=== PATIENT | male | born 1970 | race Caucasian/White ===

== ENCOUNTER 2021-10-16 12:29 | Inpatient (IN) | payer SELFPAY ==
[~2021-10-16] VITALS: Ht 185.4 cm; Wt 83.9 kg
[2021-10-16 13:12] LABS: Source, Urine Clean Catch
[2021-10-16] MEDS ORDERED: OMEP20ER PO (13:14)
[2021-10-16] MEDS ORDERED: PRED5 PO (13:14)
[2021-10-16] MEDS ORDERED: METO50 PO (13:15)
[2021-10-16] MEDS ORDERED: CATAPRES-TTS 21 EAC1 PO (13:15)
[2021-10-16 13:17] LABS: Appearance, Urine Turbid (Clear); Bilirubin, Urine Neg (Neg); Blood, Urine 5+ (Neg); Color, Urine Brown (P-Yellow); Glucose Qualitative, Urine Neg (Neg); Ketones, Urine 2+ (Neg); Leukocyte Esterase, Urine 3+ (Neg); Nitrite, Urine Neg (Neg); Protein, Urine 4+ (Neg); Urobilinogen, Urine NORM (Normal)
[2021-10-16] MEDS ORDERED: TACR1 PO ×2 (13:17→13:27)
[2021-10-16] MEDS ORDERED: MYCOPHENOLIC A360 M1 PO (13:19)
[2021-10-16] MEDS ORDERED: AMLO10 PO (13:19)
[2021-10-16] MEDS ORDERED: SIMV40 PO (13:19)
[2021-10-16] MEDS ORDERED: CATAPRES0.2 M1 PO (13:21)
[2021-10-16 13:29] LABS: Red Blood Cells, Urine TNTC /hpf (0-2)
[2021-10-16 13:30] LABS: Bacteria Many /hpf; Squamous Epithelial Cells Rare /hpf (Few); White Blood Cells, Urine TNTC /hpf (0-5)
[2021-10-16 13:31] LABS: BASOPHILS ABSOLUTE AUTO 0.05 K/mm3 (0.00-0.23); BASOPHILS PERCENT AUTO 0 % (0-2); EOSINOPHILS ABSOLUTE AUTO 0.01 K/mm3 (0.00-0.68); EOSINOPHILS PERCENT AUTO 0 % (0-6); Hematocrit 47.6 % (37.0-53.0); Hemoglobin 15.9 g/dL (13.5-17.5); IMMATURE GRAN PERCENT AUTO 1 % (0-1); LYMPHOCYTES ABSOLUTE AUTO 0.23 K/mm3 (0.84-5.20); LYMPHOCYTES PERCENT AUTO 1 % (21-46); MONOCYTES ABSOLUTE AUTO 1.31 K/mm3 (0.16-1.47); MONOCYTES PERCENT AUTO 7 % (4-13); Mean Corpuscular HGB 29.5 pg (26.0-34.0); Mean Corpuscular HGB Conc 33.4 g/dL (31.5-36.5); Mean Corpuscular Volume 88 fL (80-100); Mean Platelet Volume 10.9 fL (9.1-12.4); NEUTROPHILS ABSOLUTE AUTO 17.43 K/mm3 (1.96-9.15); NEUTROPHILS PERCENT AUTO 91 % (41-73); Platelet Count 150 K/mm3 (150-400); RDW Standard Deviation 42.4 fL (35.1-46.3); Red Blood Cell Count 5.39 M/mm3 (4.30-5.90); White Blood Cell Count 19.13 K/mm3 (4.00-11.30)
[2021-10-16 13:50] LABS: Albumin, Blood 3.2 g/dL (3.4-5.0); Albumin/Globulin Ratio 0.7 (0.8-1.8); Bilirubin, Total 1.3 mg/dL (0.1-1.0); Bun/Creatinine Ratio 15.7 (12.0-20.0); Calcium, Blood 10.3 mg/dL (8.5-10.1); Creatinine, Blood 1.72 mg/dL (0.60-1.20); Globulin, Blood 4.9 g/dL (2.2-4.0); Potassium, Blood 4.3 mmol/L (3.5-5.5); Total Protein, Blood 8.1 g/dL (6.4-8.2)
[2021-10-16 16:24] LABS: Influenza A, PCR NEGATIVE (NEGATIVE); Influenza B, PCR NEGATIVE (NEGATIVE); Resp Syncytial Virus, PCR NEGATIVE (NEGATIVE); SARS-Cov-2 (COVID-19) PCR, MMC NEGATIVE (NEGATIVE)
[2021-10-16] MEDS ORDERED: VITAMIN D31000 UNI1 PO (17:35)
--- NOTE | 2021-10-16 18:12 | NUR ---
ASSUMPTION OF CARE Pt arrived from the ER and was able to self transfer over to the bed. He is a/o x 4 and denies pain but does report that he is "freezing" and does have a low grade fever. He also reports nausea for which he was given zofran. 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 He has had this type of infection in the past s/p transplant so he reported that he was able to recognize that he was getting sick. PO fluids are at the bedside but he declined any food. IV fluids started as ordered. He is able to ambulate to the bathroom but does have his call light in reach if he needs anything.
--- NOTE | 2021-10-16 21:00 | NUR ---
2100 PATIENT FEBRILE AT 101.4, CALL PLACED TO HOSPITALIST, ORDERS FOR PRN TYLENOL RECIEVED. TUMS AND PRILOSEC PRN ORDERS RECIEVED PRN WELL A REQUEST OF THE PATIENT. WHILE GOING OVER 2100 MEDICATIONS, PATIENT REPORTED THAT SOME OF THE DOSES IN THE [facility] DID NOT CORRELATE WHAT HE TAKES AT HOME. UPDATED DOSING ORDERS RECIEVED FROM HOSPITALIST.
[2021-10-17 04:20] LABS: Albumin, Blood 2.4 g/dL (3.4-5.0); Albumin/Globulin Ratio 0.6 (0.8-1.8); Bilirubin, Total 1.4 mg/dL (0.1-1.0); Bun/Creatinine Ratio 17.2 (12.0-20.0); Calcium, Blood 9.1 mg/dL (8.5-10.1); Creatinine, Blood 1.69 mg/dL (0.60-1.20); Potassium, Blood 3.9 mmol/L (3.5-5.5); Total Protein, Blood 6.4 g/dL (6.4-8.2)
--- NOTE | 2021-10-17 05:47 | NUR ---
SHIFT SUMMARY PATIENT ALERT AND ORIENTED x4. VSS. PATIENT ON RA WITH O2 SAT ABOVE 95%. ABLE TO MAKE NEEDS KNOWN TO STAFF AND IS INDEPENDENT IN THE ROOM. PATIENT FEBRILE OVERNIGHT, PRN TYLENOL GIVEN PER [facility]. PATIENT USING URINAL AT BEDSIDE. ESTABLISHED ILEOSTOMY IN PLACE AND PATIENT MANAGES INDEPENDENTLY. NS INFUSING AT 100 mls/hr. HOME MEDICATION DOSING UPDATED, SEE PREVIOUS NOTE. OTHERWISE NO SIGNIFICANT CHANGES TO PATIENT THIS SHIFT. WILL REPORT TO DAY SHIFT RN.
--- NOTE | 2021-10-17 07:28 | NUR ---
ASSUMPTION OF CARE Pt is awake and a/o x 4 with no complaints this morning. His IV fluids continue to infuse as ordered. He has been able to ambulate to the toilet throughout the night per report. He has updated his via text. He is pleasant but flat and able to make his needs known.
[2021-10-17 07:50] LABS: BASOPHILS ABSOLUTE AUTO 0.03 K/mm3 (0.00-0.23); BASOPHILS PERCENT AUTO 0 % (0-2); EOSINOPHILS ABSOLUTE AUTO 0.01 K/mm3 (0.00-0.68); EOSINOPHILS PERCENT AUTO 0 % (0-6); Hematocrit 40.9 % (37.0-53.0); Hemoglobin 13.6 g/dL (13.5-17.5); IMMATURE GRAN ABSOLUTE AUTO 0.13 K/mm3 (0.00-0.10); IMMATURE GRAN PERCENT AUTO 1 % (0-1); LYMPHOCYTES ABSOLUTE AUTO 0.42 K/mm3 (0.84-5.20); LYMPHOCYTES PERCENT AUTO 3 % (21-46); MONOCYTES ABSOLUTE AUTO 1.44 K/mm3 (0.16-1.47); MONOCYTES PERCENT AUTO 10 % (4-13); Mean Corpuscular HGB 29.6 pg (26.0-34.0); Mean Corpuscular HGB Conc 33.3 g/dL (31.5-36.5); Mean Corpuscular Volume 89 fL (80-100); Mean Platelet Volume 10.3 fL (9.1-12.4); NEUTROPHILS ABSOLUTE AUTO 12.38 K/mm3 (1.96-9.15); NEUTROPHILS PERCENT AUTO 86 % (41-73); Platelet Count 145 K/mm3 (150-400); RDW Standard Deviation 42.7 fL (35.1-46.3); White Blood Cell Count 14.41 K/mm3 (4.00-11.30)
[2021-10-17 15:31] LABS: Bun/Creatinine Ratio 18.8 (12.0-20.0); Calcium, Blood 9.1 mg/dL (8.5-10.1); Creatinine, Blood 1.7 mg/dL (0.60-1.20); Potassium, Blood 4.3 mmol/L (3.5-5.5)
--- NOTE | 2021-10-17 16:42 | NUR ---
SHIFT SUMMARY Pt is a/o x 4 with no c/o pain. His urine has been yellow all day and he has had good output as well as good PO intake in addition to his IV fluids. His IV ABO have infused as ordered. He has been changed to medical status but we are still waiting on a bed. He has been updating his via text. He has been managing emptying his colostomy and using the urinal at the bedside. A new IV site was offered as his is in his AC but he declined and reports he would rather hold his arm still than be stuck again. He is a little flat but pleasant and reports that he feels better than he did yesturday. He is able to make his needs known and calls for help when needed.
--- NOTE | 2021-10-18 06:17 | NUR ---
SHIFT SUMMARY PATIENT REMAINS MED NO TELE STATUS, AWAITING MEDICAL FLOOR BED. A/0 x4, USES CALL LIGHT APPROPRIATELY. VSS AND IS ON ROOM AIR. FEBRILE OVERNIGHT, MEDICATED PER [facility] WITH TYLENOL. PATIENT USES URINAL AT BEDSIDE AND IS ABLE TO AMBULATE INTO BATHROOM AND MANAGE ILEOSTOMY INDEPENDENTLY. POWERGLIDE PLACED THIS SHIFT DUE TO LEAKING PERIPHERAL IV. NS INFUSING. NO OTHER SIGNIFICANT CHANGES THIS SHIFT, WILL REPORT TO DAY SHIFT RN.
[2021-10-18 07:57] LABS: BASOPHILS ABSOLUTE AUTO 0.02 K/mm3 (0.00-0.23); BASOPHILS PERCENT AUTO 0 % (0-2); EOSINOPHILS PERCENT AUTO 1 % (0-6); Hematocrit 38.7 % (37.0-53.0); Hemoglobin 13.1 g/dL (13.5-17.5); IMMATURE GRAN ABSOLUTE AUTO 0.08 K/mm3 (0.00-0.10); IMMATURE GRAN PERCENT AUTO 1 % (0-1); LYMPHOCYTES ABSOLUTE AUTO 0.45 K/mm3 (0.84-5.20); LYMPHOCYTES PERCENT AUTO 4 % (21-46); MONOCYTES ABSOLUTE AUTO 1.38 K/mm3 (0.16-1.47); MONOCYTES PERCENT AUTO 12 % (4-13); Mean Corpuscular HGB Conc 33.9 g/dL (31.5-36.5); Mean Corpuscular Volume 89 fL (80-100); Mean Platelet Volume 10.6 fL (9.1-12.4); NEUTROPHILS ABSOLUTE AUTO 9.99 K/mm3 (1.96-9.15); NEUTROPHILS PERCENT AUTO 83 % (41-73); Platelet Count 166 K/mm3 (150-400); RDW Coefficient Variation 13.2 % (11.7-14.2); RDW Standard Deviation 42.9 fL (35.1-46.3); Red Blood Cell Count 4.36 M/mm3 (4.30-5.90); White Blood Cell Count 12.02 K/mm3 (4.00-11.30)
[2021-10-18 08:12] LABS: Bun/Creatinine Ratio 18.4 (12.0-20.0); Calcium, Blood 9.1 mg/dL (8.5-10.1); Creatinine, Blood 1.58 mg/dL (0.60-1.20); Potassium, Blood 3.9 mmol/L (3.5-5.5)
--- NOTE | 2021-10-18 09:20 | NUR ---
CARE ASSUMPTION: PATIENT ALERT AND ORIENTED X4. NEURO WNL. DENIES NUMBNESS/TINGLING. PERRLA. ABLE TO MOVE ALL EXTREMITIES AND TURN SELF IN BED. UP TO BATHROOM INDEPENDENTLY. ON ROOM AIR, LUNGS SOUNDING CLEAR. NO TELE. BP ELEVATED THIS AM, MORNING PO MEDS GIVEN. NO SIGNS OF EDEMA. STRONG PULSES. ILEOSTOMY IN PLACE, DRAINING BROWN LOOSE STOOLS. PATIENT MANAGES HIMSELF. USING URINAL TO VOID. CLEAR/YELLOW URINE. DENIES PAIN WHEN URINATING, STATES HE IS STILL HAVING SOME URGENCY. TOLERATING PO DIET. DENIES ABDOMINAL PAIN/NAUSEA. TAKING PILLS WHOLE WITH WATER. ANTIBIOTICS AND NS INFUSING. POWERGLIDE RIGHT UPPER ARM DRAWING WELL, CAPS CHANGED THIS AM. COMPLAINS OF HEADACHE THIS AM, SLIGHT TEMP INCREASE AT 99.6. MEDICATED PER [facility] WITH TYLENOL. DENIES NEEDS AT THIS TIME. WILL CONTINUE TO MONITOR. CALL LIGHT IN REACH.
[2021-10-18 15:35] LABS: Bun/Creatinine Ratio 16.4 (12.0-20.0); Calcium, Blood 9.1 mg/dL (8.5-10.1); Creatinine, Blood 1.59 mg/dL (0.60-1.20); Potassium, Blood 4.3 mmol/L (3.5-5.5)
--- NOTE | 2021-10-18 18:47 | NUR ---
SHIFT SUMMARY: NO ACUTE CHANGES. SEE PREVIOUS NOTE. PATIENT REMAINS ON ROOM AIR. VITAL SIGNS STABLE, TEMP WNL. MEDICAL STATUS NO TELE. DENIES ABDOMINAL PAIN/NAUSEA. USING URINAL, URINE CLEAR/YELLOW. ILEOSTOMY WNL, PATIENT MANAGING INDP. LR BOLUS X 2 BAGS INFUSED OVER DAY SHIFT. ANTIBIOTICS INFUSED. TOLERATING PO DIET. POWERGLIDE SALINE LOCKED. DENIES NEEDS AT THIS TIME. WILL CONTINUE TO MONITOR AND REPORT OFF.
[2021-10-19 05:36] LABS: Calcium, Blood 9.3 mg/dL (8.5-10.1); Creatinine, Blood 1.41 mg/dL (0.60-1.20); Potassium, Blood 3.9 mmol/L (3.5-5.5)
--- NOTE | 2021-10-19 06:08 | NUR ---
SHIFT SUMMARY MED NO TELE STATUS PATIENT ALERT AND ORIENTED x4. ABLE TO MAKE NEEDS KNOWN TO STAFF. VSS. AFEBRILE THIS SHIFT. PATIENT REMAINS ON RA. INDEPENDENT IN THE ROOM. ESTABLISHED ILEOSTOMY THAT PATIENT MANAGES ON HIS OWN. USES URINAL AT THE BEDSIDE WITH GOOD OUTPUT. TOLERATING PO INTAKE WELL. POWERGLIDE SALINE LOCKED. NO OTHER SIGNIFICANT CHANGES THIS SHIFT, WILL REPORT TO DAY SHIFT RN.
[2021-10-19] MEDS ORDERED: PROBIOTIC1 EA13 PO (11:44)
[2021-10-19] MEDS ORDERED: CEFD300 PO (11:44)
--- NOTE | 2021-10-19 13:24 | NUR ---
PT DISCHARGE TO HOME WITH DISCHARGE ORDERS, CN DISCLOSED DISCHARGE MEDS AND INSTRUCTIONS WITH THE PT. NO OTHER ISSUES REPORTED PRIOR TO DISCHARGE, VITALS STABLE, INDEPENDENT IN THE ROOM. ALL BELONGIGNS SENT WITH THE PT, ACCOMPANIED BY PCT FOR DISCHARGE
== END 2021-10-19 12:34 | disposition home or self-care (01) | DRG 872 ==
LOC: ER 12:29 → EDBEDREQ 17:09 → PCU 17:16
PROVIDERS: Family Medicine; Physician Assistant; Student in an Organized Health Care Education/Training Program; ADMIT Hospitalist
DX: A41.51 Sepsis due to Escherichia coli [E. coli] (principal); T86.19 Other complication of kidney transplant; N39.0 Urinary tract infection, site not specified; D84.9 Immunodeficiency, unspecified; N17.9 Acute kidney failure, unspecified; R65.20 Severe sepsis without septic shock; Z88.2 Allergy status to sulfonamides; Z79.899 Other long term (current) drug therapy; Z91.012 Allergy to eggs; Z20.822 Contact with and (suspected) exposure to COVID-19; Z93.2 Ileostomy status
CPT/HCPCS: 0241U; 36415; 71046; 76776; 80048; 80053; 80197; 81001; 83605; 85025; 87040; 87077; 87086; 87186; 94762; 96365; 96367; 96375; 99284-25; A9270; C1751; J0696; J1644; J2405; J2543; J3370; J7030; J7050; J7120; J7507; J7512; J7518

== ENCOUNTER → 2021-10-25 | Outpatient (CLI) | payer OTHER ==
[~2021-10-25] MED LIST: AMLO10 PO; CATAPRES-TTS 21 EAC1 PO; CATAPRES0.2 M1 PO; CEFD300 PO; METO50 PO; MYCOPHENOLIC A360 M1 PO; OMEP20ER PO; PRED5 PO; PROBIOTIC1 EA13 PO; SIMV40 PO; TACR1 PO; VITAMIN D31000 UNI1 PO
[2021-10-25 20:01] LABS: Bun/Creatinine Ratio 19.6 (12.0-20.0); Calcium, Blood 9.5 mg/dL (8.5-10.1); Creatinine, Blood 1.38 mg/dL (0.60-1.20); Potassium, Blood 5.2 mmol/L (3.5-5.5)
== END | disposition home or self-care (01) ==
LOC: LAB SHORT 15:30 → LAB 15:30
PROVIDERS: Nurse Practitioner
DX: N28.9 Disorder of kidney and ureter, unspecified (principal)
CPT/HCPCS: 80048

== ENCOUNTER → 2021-11-04 | Outpatient (CLI) | payer OTHER ==
[~2021-11-04] MED LIST changes: +BANATROL PLUS1 EAC1 PO; +CIPR250 PO; +Enalapril Male2.5 MG PO; +LACT PO; +MYCOPHENOLIC A PO; -MYCOPHENOLIC A360 M1 PO
== END | disposition home or self-care (01) ==
LOC: LAB 16:33 → LAB SHORT 16:33
DX: N39.0 Urinary tract infection, site not specified (principal)
CPT/HCPCS: 87077; 87086; 87186

== ENCOUNTER 2021-11-05 12:03 | Inpatient (IN) | payer SELFPAY ==
[~2021-11-05] VITALS: Ht 185.4 cm; Wt 78.3 kg
[~2021-11-05 12:03] MED LIST changes: -BANATROL PLUS1 EAC1 PO; -CIPR250 PO; -Enalapril Male2.5 MG PO; -LACT PO
[2021-11-05 12:52] LABS: Source, Urine Clean Catch
[2021-11-05 12:54] LABS: BASOPHILS ABSOLUTE AUTO 0.06 K/mm3 (0.00-0.23); BASOPHILS PERCENT AUTO 0 % (0-2); EOSINOPHILS ABSOLUTE AUTO 0.06 K/mm3 (0.00-0.68); EOSINOPHILS PERCENT AUTO 0 % (0-6); Hematocrit 44.3 % (37.0-53.0); Hemoglobin 14.8 g/dL (13.5-17.5); IMMATURE GRAN ABSOLUTE AUTO 0.35 K/mm3 (0.00-0.10); IMMATURE GRAN PERCENT AUTO 1 % (0-1); LYMPHOCYTES ABSOLUTE AUTO 0.64 K/mm3 (0.84-5.20); LYMPHOCYTES PERCENT AUTO 3 % (21-46); MONOCYTES ABSOLUTE AUTO 2.14 K/mm3 (0.16-1.47); MONOCYTES PERCENT AUTO 9 % (4-13); Mean Corpuscular HGB 29.5 pg (26.0-34.0); Mean Corpuscular HGB Conc 33.4 g/dL (31.5-36.5); Mean Corpuscular Volume 88 fL (80-100); Mean Platelet Volume 10.3 fL (9.1-12.4); NEUTROPHILS ABSOLUTE AUTO 21.03 K/mm3 (1.96-9.15); NEUTROPHILS PERCENT AUTO 87 % (41-73); Platelet Count 283 K/mm3 (150-400); Red Blood Cell Count 5.02 M/mm3 (4.30-5.90); White Blood Cell Count 24.28 K/mm3 (4.00-11.30)
[2021-11-05 12:56] LABS: Appearance, Urine Cloudy (Clear); Bilirubin, Urine Neg (Neg); Blood, Urine 5+ (Neg); Color, Urine Amber (P-Yellow); Glucose Qualitative, Urine Neg (Neg); Ketones, Urine Neg (Neg); Leukocyte Esterase, Urine 3+ (Neg); Nitrite, Urine Neg (Neg); Protein, Urine 3+ (Neg); Specific Gravity, Urine 1.025 (1.003-1.022); Urobilinogen, Urine NORM (Normal)
[2021-11-05 13:06] LABS: Red Blood Cells, Urine TNTC /hpf (0-2)
[2021-11-05 13:09] LABS: White Blood Cells, Urine TNTC /hpf (0-5)
[2021-11-05 13:10] LABS: Bacteria Mod /hpf; Squamous Epithelial Cells Few /hpf (Few); Transitional Epithelial Cells Rare /hpf (0-Rare)
[2021-11-05 13:11] LABS: Hyaline Casts 0-2 /lpf (0-2); RBC Cast 0-2 /lpf (0); WBC Cast 0-2 /lpf (0)
[2021-11-05 13:15] LABS: Albumin, Blood 3.5 g/dL (3.4-5.0); Albumin/Globulin Ratio 0.7 (0.8-1.8); Bilirubin, Total 1.3 mg/dL (0.1-1.0); Bun/Creatinine Ratio 14.8 (12.0-20.0); Calcium, Blood 9.6 mg/dL (8.5-10.1); Creatinine, Blood 1.55 mg/dL (0.60-1.20); Globulin, Blood 4.9 g/dL (2.2-4.0); Potassium, Blood 4.4 mmol/L (3.5-5.5); Total Protein, Blood 8.4 g/dL (6.4-8.2)
[2021-11-05] MEDS ORDERED: Enalapril Male2.5 MG PO (20:18)
[2021-11-06 05:36] LABS: BASOPHILS ABSOLUTE AUTO 0.03 K/mm3 (0.00-0.23); BASOPHILS PERCENT AUTO 0 % (0-2); EOSINOPHILS ABSOLUTE AUTO 0.06 K/mm3 (0.00-0.68); EOSINOPHILS PERCENT AUTO 0 % (0-6); IMMATURE GRAN ABSOLUTE AUTO 0.15 K/mm3 (0.00-0.10); IMMATURE GRAN PERCENT AUTO 1 % (0-1); LYMPHOCYTES ABSOLUTE AUTO 0.41 K/mm3 (0.84-5.20); LYMPHOCYTES PERCENT AUTO 3 % (21-46); MONOCYTES ABSOLUTE AUTO 1.68 K/mm3 (0.16-1.47); MONOCYTES PERCENT AUTO 11 % (4-13); Mean Corpuscular HGB 29.9 pg (26.0-34.0); Mean Corpuscular HGB Conc 33.3 g/dL (31.5-36.5); Mean Corpuscular Volume 90 fL (80-100); Mean Platelet Volume 10.9 fL (9.1-12.4); NEUTROPHILS ABSOLUTE AUTO 13.23 K/mm3 (1.96-9.15); NEUTROPHILS PERCENT AUTO 85 % (41-73); Platelet Count 215 K/mm3 (150-400); Red Blood Cell Count 4.35 M/mm3 (4.30-5.90); White Blood Cell Count 15.56 K/mm3 (4.00-11.30)
[2021-11-06 06:02] LABS: Bun/Creatinine Ratio 14.7 (12.0-20.0); Calcium, Blood 9.2 mg/dL (8.5-10.1); Creatinine, Blood 1.36 mg/dL (0.60-1.20)
--- NOTE | 2021-11-06 06:32 | NUR ---
SHIFT SUMMARY Pt admitted to 311 from ER, pt a/o x 4, independent in room. Pt febrile at beginning of shift and c/o headache, mild nausea, med per mar. Pt reported 1 episode of night sweats at approx 0100 but refused tylenol at that time. WBC downtrending this am and pt reports nausea and headache are relieved at this time. Pt tolerated several small snacks during the night, voiding without difficulty. Ileostomy with liquid stool noted, stoma pink/moist. VSS, skin intact, anticipate d/c when medically stable.
[2021-11-07 04:15] LABS: Hematocrit 37.1 % (37.0-53.0); Hemoglobin 12.2 g/dL (13.5-17.5); Mean Corpuscular HGB 29.4 pg (26.0-34.0); Mean Corpuscular HGB Conc 32.9 g/dL (31.5-36.5); Mean Corpuscular Volume 89 fL (80-100); Mean Platelet Volume 10.4 fL (9.1-12.4); Platelet Count 216 K/mm3 (150-400); RDW Standard Deviation 42.5 fL (35.1-46.3); Red Blood Cell Count 4.15 M/mm3 (4.30-5.90); White Blood Cell Count 9.81 K/mm3 (4.00-11.30)
[2021-11-07 04:28] LABS: Albumin, Blood 2.4 g/dL (3.4-5.0); Anion Gap 6 mmol/L (6-16); Blood Urea Nitrogen 19 mg/dL (8-24); CO2, Blood 23 mmol/L (21-32); Calcium, Blood 9.3 mg/dL (8.5-10.1); Chloride, Blood 109 mmol/L (98-108); Creatinine, Blood 1.36 mg/dL (0.60-1.20); Glomerular Filtration Rate 55 (60-); Glucose, Blood 110 mg/dL (70-99); Phosphorus, Blood 2.1 mg/dL (2.5-4.9); Potassium, Blood 4.1 mmol/L (3.5-5.5); Sodium, Blood 138 mmol/L (136-145)
--- NOTE | 2021-11-07 05:52 | NUR ---
SHIFT SUMMARY Pt reports he's feeling much better. Afebrile, vss, no c/o pain or chills, abx's per mar. Pt up independently in room, voiding without difficulty, anticipate d/c when medically stable.
[2021-11-07] MEDS ORDERED: CIPR250 PO (13:38)
[2021-11-07] MEDS ORDERED: BANATROL PLUS1 EAC1 PO (13:39)
[2021-11-07] MEDS ORDERED: LACT PO (13:39)
--- NOTE | 2021-11-07 15:09 | NUR ---
DISCHARGE SUMMARY 1445: DISCHARGE INSTRUCTIONS WERE GIVEN AND DISCUSSED WITH PATIENT. PATIENT INSTRUCTED TO CALL AND MAKE APPOINTMENT WITH PCP. EDUCATED PATIENT ON ABX. ALL QUESTIONS ANSWERED. PATIENT ESCORTED OUT BY PRIMARY RN.
== END 2021-11-07 15:11 | disposition home or self-care (01) | DRG 872 ==
LOC: ER 12:03 → MEDS 17:44
PROVIDERS: Family Medicine; Physician Assistant; ADMIT Internal Medicine
DX: A41.51 Sepsis due to Escherichia coli [E. coli] (principal); N39.0 Urinary tract infection, site not specified; Z94.0 Kidney transplant status; T86.19 Other complication of kidney transplant; N18.30 Chronic kidney disease, stage 3 unspecified; I12.9 Hypertensive chronic kidney disease with stage 1 through stage 4 chronic kidney disease, or unspecified chronic kidney disease; K21.9 Gastro-esophageal reflux disease without esophagitis; E78.5 Hyperlipidemia, unspecified; Z79.899 Other long term (current) drug therapy; Z88.2 Allergy status to sulfonamides; Z91.012 Allergy to eggs; Z92.25 Personal history of immunosuppression therapy; Z93.2 Ileostomy status
CPT/HCPCS: 36415; 80048; 80053; 80069; 81001; 83605; 85025; 85027; 87040; 87077; 87086; 87186; 96374; 96375; 99285-25; A9270; J0696; J1650; J2405; J7030; J7507; J7512; J7517; J7518

== ENCOUNTER → 2021-11-25 | Outpatient (CLI) | payer BC ==
[~2021-11-25] MED LIST changes: +ASPI81CH; +Amlodipine Bes2.5 MG; +BANATROL PLUS1 EAC1 PO; +CEFP200 PO; +CIPR250 PO; +Enalapril Male2.5 MG PO; +IRON18 MG; +LACT PO; +MAGCHL64ER; +ZOCOR20 MG
[2021-11-25 14:08] LABS: CHOL/HDL RATIO 4.3; Cholesterol 247 mg/dL (50-200); HDL Cholesterol 57 mg/dL (>39); LDL/HDL RATIO 2.8; Low Density Lipoprotein Chol 162 mg/dL (0-110); Triglycerides 140 mg/dL (30-160); Very Low Density Lipoprot Chol 28 mg/dL (6-32)
== END | disposition home or self-care (01) ==
LOC: LAB SHORT 10:35
PROVIDERS: Nurse Practitioner
DX: Z12.5 Encounter for screening for malignant neoplasm of prostate (principal); Z11.59 Encounter for screening for other viral diseases; E78.5 Hyperlipidemia, unspecified
CPT/HCPCS: 80061; 86803; G0103

== ENCOUNTER → 2022-10-12 | Outpatient (CLI) | payer BC | END | disposition home or self-care (01) | LOC: LAB SHORT 17:44 → LAB 17:44 | DX: R35.0 Frequency of micturition (principal); R30.0 Dysuria | CPT/HCPCS: 87077; 87086; 87186 ==

== ENCOUNTER → 2024-12-23 | Outpatient (CLI) | payer BC ==
[2024-12-23 12:10] LABS: CHOL/HDL RATIO 3.2; Cholesterol 180 mg/dL (50-200); HDL Cholesterol 57 mg/dL (>39); LDL/HDL RATIO 1.6; Low Density Lipoprotein Chol 91 mg/dL (0-110); Triglycerides 159 mg/dL (30-160); Very Low Density Lipoprot Chol 31 mg/dL (6-32)
== END ==
LOC: LAB SHORT 10:08 → LAB 10:08
PROVIDERS: Student in an Organized Health Care Education/Training Program
DX: Z12.5 Encounter for screening for malignant neoplasm of prostate (principal); Z13.6 Encounter for screening for cardiovascular disorders
CPT/HCPCS: 80061; G0103

== ENCOUNTER → 2025-03-13 | Outpatient (CLI) | payer BC ==
[2025-03-13 10:11] LABS: BASOPHILS ABSOLUTE AUTO 0.08 K/mm3 (0.00-0.23); BASOPHILS PERCENT AUTO 1 % (0-2); EOSINOPHILS ABSOLUTE AUTO 0.60 K/mm3 (0.00-0.68); EOSINOPHILS PERCENT AUTO 6 % (0-6); Hematocrit 46.4 % (37.0-53.0); Hemoglobin 15.5 g/dL (13.5-17.5); IMMATURE GRAN ABSOLUTE AUTO 0.04 K/mm3 (0.00-0.10); IMMATURE GRAN PERCENT AUTO 0 % (0-1); LYMPHOCYTES ABSOLUTE AUTO 0.74 K/mm3 (0.84-5.20); LYMPHOCYTES PERCENT AUTO 7 % (21-46); MONOCYTES ABSOLUTE AUTO 0.92 K/mm3 (0.16-1.47); MONOCYTES PERCENT AUTO 9 % (4-13); Mean Corpuscular HGB Conc 33.4 g/dL (31.5-36.5); Mean Corpuscular Volume 88 fL (80-100); NEUTROPHILS ABSOLUTE AUTO 7.74 K/mm3 (1.96-9.15); NEUTROPHILS PERCENT AUTO 77 % (41-73); NRBC ABSOLUTE 0.00 K/mm3 (0.00-0.02); NRBC Auto 0.0 /100 WBC (0.0-0.2); Platelet Count 234 K/mm3 (150-400); RDW Coefficient Variation 12.6 % (11.7-14.2); RDW Standard Deviation 40.6 fL (35.1-46.3)
[2025-03-13 10:27] LABS: C-REACTIVE PROTEIN, EXT RANGE 0.308 mg/dL (0.000-0.300)
[2025-03-13 10:31] LABS: Alanine Aminotransfer (ALT/SGP 28.0 U/L (12-78); Albumin, Blood 3.8 g/dL (3.4-5.0); Albumin/Globulin Ratio 1.0 (0.8-1.8); Anion Gap 7.0 mmol/L (3-11); Aspartate Aminotrans (AST/SGOT 13.0 U/L (12-37); Bilirubin, Total 0.7 mg/dL (0.1-1.0); Blood Urea Nitrogen 20.0 mg/dL (8-24); CO2, Blood 24.0 mmol/L (21-32); Calcium, Blood 9.3 mg/dL (8.5-10.1); Chloride, Blood 108.0 mmol/L (98-108); Creatinine, Blood 1.37 mg/dL (0.60-1.20); Globulin, Blood 3.7 g/dL (2.2-4.0); Glucose, Blood 143.0 mg/dL (70-99); Potassium, Blood 3.7 mmol/L (3.5-5.5); Sodium, Blood 135.0 mmol/L (136-145); Total Protein, Blood 7.5 g/dL (6.4-8.2)
== END | disposition home or self-care (01) ==
LOC: LAB 08:35 → LAB SHORT 08:35
PROVIDERS: Nurse Practitioner Family
DX: M79.604 Pain in right leg (principal)
CPT/HCPCS: 80053; 85025; 86140